=== PATIENT | female | born 1970 | race Caucasian/White ===

== ENCOUNTER 2016-09-18 18:18 | Emergency (ER) | payer OTHER ==
[~2016-09-18] VITALS: Ht 157.5 cm; Wt 72.0 kg
[~2016-09-18 18:18] MED LIST: CLON-379 PO; HYD25 PO; LORA-441 PO
[2016-09-18 18:59] VITALS: Ht 157.5 cm; Wt 72.0 kg
[2016-09-18] MEDS ORDERED: ACETAMINOPHEN 500 MG TAB PO STA (21:13)
--- NOTE | 2016-09-18 22:02 | RADRPT ---
PROCEDURE: XR Chest. CLINICAL INDICATION: Chest pain TECHNIQUE: A single portable view of the chest was obtained. COMPARISON: None FINDINGS: The cardiomediastinal silhouette is within normal limits. The lungs and pleural spaces are clear. The soft tissues and osseous structures are unremarkable. IMPRESSION: No acute cardiopulmonary disease. RPTAT: HPNM Physician Mary Date Time Electronically viewed and signed by Galdino Marin Physician on 09/18/2016 22:02 /
[2016-09-18] MEDS ORDERED: PROM25TA14 PO (22:13)
[2016-09-18] MEDS ORDERED: ACET325T33 PO (22:13)
[2016-09-18] MEDS ORDERED: BENZ100C70 PO (22:13)
--- NOTE | 2016-09-18 22:23 | ERD ---
ER Documentation Chief Complaint Date/Time DATE: 09/18/16 TIME: 22:22 Chief Complaint Cough and congestion x4 days. afebrile HPI This is a 45-year-old female presenting with a history of hypertension to the emergency department complaining of cough, congestion for the past 6 days. Patient denies any chest pain or significant shortness of breath. Patient states that she feels like she has phlegm stuck in her throat. She denies any nasal congestion at this moment however she says it started off with a lot of congestion 6 days ago. Patient states that 6 days ago she had a headache that has resolved as well. ROS All systems reviewed and are negative except as per history of present illness. Medications Home Meds Active Scripts Benzonatate* (Tessalon Perle*) 100 Mg Capsule, 100 MG PO Q8H Y for COUGH, #20 CAP Prov:NARDA GREER PA-C 09/18/16 Acetaminophen* (Tylenol*) 325 Mg Tablet, 1 TAB PO Q6 Y for PAIN AND OR ELEVATED TEMP, #30 TAB Prov:NARDA GREER PA-C 09/18/16 Promethazine Hcl* (Phenergan*) 25 Mg Tablet, 25 MG PO Q6 Y for NAUSEA AND/OR VOMITING, #14 TAB Prov:NARDA GREER PA-C 09/18/16 Lorazepam* (Ativan*) 0.5 Mg Tablet, 0.5 MG PO Q8H Y for ANXIETY, #10 TAB Prov:CATHY MINAYA DO 05/13/16 Clonidine Hcl* (Clonidine Hcl*) 0.1 Mg Tab, 0.1 MG PO Q6 Y for SBP> 160, or DBP> 100, #10 TAB Prov:CATHY MINAYA DO 05/13/16 Hydrochlorothiazide* (Hydrochlorothiazide*) 25 Mg Tab, 25 MG PO DAILY, #30 TAB Prov:NERI ESTRADA DO 02/08/15 Allergies Allergies: Coded Allergies: No Known Allergy (Unverified , 02/08/15) PMhx/Soc Medical and Surgical Hx: pt denies Surgical Hx History of Surgery: No Anesthesia Reaction: No Hx Neurological Disorder: No Hx Respiratory Disorders: No Hx Cardiac Disorders: Yes (htn) Hx Psychiatric Problems: No Hx Miscellaneous Medical Probl: No Hx Alcohol Use: No Hx Substance Use: No Hx Tobacco Use: No Smoking Status: Never smoker Physical Exam Vitals Vital Signs Date Time Temp Pulse Resp B/P Pulse Ox O2 Delivery O2 Flow Rate FiO2 09/18/16 23:59 97.9 112 18 134/84 98 Room Air 09/18/16 18:59 98.5 121 22 135/88 96 Physical Exam GENERAL: no acute distress, non-toxic appearing, sitting up in bed HENT: normocephalic/atraumatic EYES: conjunctiva is normal NECK: no noticeable or palpable swelling, no carotid bruits, no JVD CARDIOVASCULAR: RRR, good S1S2, no murmurs or gallops heard PULM: clear to auscultation, no use of accessory muscles, no crackles or wheezes. ABDOMEN: normal bowel sounds, abdomen soft and nontender EXT: no edema, cyanosis or clubbing MUSCULOSKELETAL: 5/5 strength, normal range of motion, no swollen or erythematous joints. NEURO: alert and oriented SKIN: no rashes, skin warm and dry, no erythematous areas BREAST: breast exam was not relevant, therefore not preformed PSYCH: normal mood and mentation, denies suicidal or homicidal ideation and thoughts Result Diagram: 09/18/16 2321 09/18/16 2321 Results 24 hrs Laboratory Tests Test 09/18/16 23:21 Alanine Aminotransferase (ALT/SGPT) 55IU/L Albumin 4.0g/dl Albumin/Globulin Ratio 1.21 Alkaline Phosphatase 82IU/L Anion Gap 16 Aspartate Amino Transf (AST/SGOT) 22IU/L Basophils # 0.010^3/ul Basophils % 0.4% Blood Urea Nitrogen 12mg/dl Calcium Level 8.9mg/dl Carbon Dioxide Level 28mmol/L Chloride Level 95mmol/L Creatine Kinase 271IU/L Creatine Kinase Index 0.3 Creatinine 0.61mg/dl Creatinine Kinase MB (Mass) 0.77ng/ml D-Dimer 2162.15ng/ml D-Dimer Comment Direct Bilirubin 0.00mg/dl Eosinophils # 0.210^3/ul Eosinophils % 2.0% Globulin 3.30g/dl Glucose Level 101mg/dl Hematocrit 35.2% Hemoglobin 12.2g/dl Indirect Bilirubin 0.2mg/dl Lipase 167U/L Lymphocytes # 3.410^3/ul Lymphocytes % 35.2% Mean Corpuscular Hemoglobin 29.5pg Mean Corpuscular Hemoglobin Concent 34.7g/dl Mean Corpuscular Volume 85.0fl Mean Platelet Volume 8.9fl Monocytes # 0.610^3/ul Monocytes % 6.5% Neutrophils # 5.310^3/ul Neutrophils % 55.2% Nucleated Red Blood Cells # 0.010^3/ul Nucleated Red Blood Cells % 0.0/100WBC Platelet Count 64676^3/UL Potassium Level 3.2mmol/L Red Blood Count 4.1410^6/ul Red Cell Distribution Width 12.5% Sodium Level 136mmol/L Total Bilirubin 0.2mg/dl Total Protein 7.3g/dl Troponin I 0.012ng/ml White Blood Count 9.610^3/ul Current Medications Medications (Trade) Dose Ordered Sig/Jerry Route PRN Reason Start Time Stop Time Status Last Admin Dose Admin Acetaminophen 1000 mg 1,000 mg ONCE STAT PO 09/18/16 21:13 09/18/16 21:15 DC 09/18/16 21:36 Sodium Chloride 1,000 ml @ 1,000 mls/hr Q1H STAT IV 09/18/16 22:29 09/18/16 23:28 DC 09/18/16 22:29 Sodium Chloride (NS) 100 ml @ ud STK-MED ONCE .ROUTE 09/19/16 00:33 09/19/16 00:34 DC 09/19/16 00:51 Iohexol (Omnipaque 300mg/ ml) 150 ml STK-MED ONCE .ROUTE 09/19/16 00:33 09/19/16 00:34 DC 09/19/16 00:51 Procedures/MDM This is a 45-year-old female with a history of hypertension presenting to the emergency room complaining of cough and congestion for the past 6 days. This is likely due to a viral upper respiratory infection/bronchitis due to physical examination. A chest x-ray did not show any evidence of infiltrates, pneumothorax, pleural effusion or pneumonia. On examination patient was tachycardic at 121 I have rechecked her pulse and it became 138 on recheck throughout the examination.. I have consulted my supervising physician regarding this patient who advised for patient to do a CTA of the chest to rule out pulmonary embolism. IV access was established. CBC did not show any evidence of leukocytosis or anemia. CMP did not show any significant abnormalities. D-dimer was elevated. Troponin was negative. An EKG was done in the ED and no evidence of STEMI. CTA of the chest was done and radiologist stated: 1. No evidence for pulmonary embolus. 2. Asymmetric left lower lobe bronchiectasis with peribronchial thickening and mild interstitial changes suggestive of inflammation/bronchitis. No dense focal lobar consolidation. 3. Small hiatal hernia. 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 Discussed return to the emergency room for any worsening signs or symptoms. Patient understands and agrees with this plan Departure Diagnosis: Primary Impression: Viral URI Condition: Stable Patient Instructions: Uri, Viral, No Abx (Adult) Additional Instructions: FOLLOW UP WITH YOUR PRIMARY CARE PHYSICIAN TOMORROW.Return to this facility if you are not improving as expected. Return to this facility if you are not improving as expected. Take all medicines as directed. NARDA GREER PA-C Sep 18, 2016 22:23
[2016-09-18] MEDS ORDERED: SOD CHLORIDE 0.9% 1,000 ML IV STA (22:29)
[2016-09-18 23:57] LABS: ADD SCAN DIFF NO
[2016-09-19] LABS: BASOPHILS % 0.4 % (0.0-2.0); EOSINOPHILS # 0.2 10^3/ul (0.0-0.5); HEMATOCRIT 35.2 % (37.0-47.0); HEMOGLOBIN 12.2 g/dl (12.0-16.0); LYMPHOCYTES # 3.4 10^3/ul (0.8-2.9); LYMPHOCYTES % 35.2 % (15.0-51.0); MEAN CORPUSCULAR HEMOGLOBIN 29.5 pg (29.0-33.0); MEAN CORPUSCULAR HGB CONC 34.7 g/dl (32.0-37.0); MEAN PLATELET VOLUME 8.9 fl (7.4-10.4); MONOCYTE # 0.6 10^3/ul (0.3-0.9); MONOCYTES % 6.5 % (0.0-11.0); NEUTROPHIL # 5.3 10^3/ul (1.6-7.5); NEUTROPHILS % 55.2 % (39.0-77.0); PLATELET COUNT 402 10^3/UL (140-415); RED BLOOD COUNT 4.14 10^6/ul (4.20-5.40); RED CELL DISTRIBUTION WIDTH 12.5 % (11.5-14.5); WHITE BLOOD COUNT 9.6 10^3/ul (4.8-10.8)
[2016-09-19 00:09] LABS: CHLORIDE 95 mmol/L (97-110); POTASSIUM 3.2 mmol/L (3.5-5.1); SODIUM 136 mmol/L (135-144)
[2016-09-19 00:11] LABS: ALBUMIN/GLOBULIN RATIO 1.21; ALKALINE PHOSPHATASE 82 IU/L (42-121); ANION GAP 16 (8-16); ASPARTATE AMINO TRANSFERASE 22 IU/L (15-46); BILIRUBIN,INDIRECT 0.2 mg/dl (0-1.1); BILIRUBIN,TOTAL 0.2 mg/dl (0.2-1.3); CARBON DIOXIDE 28 mmol/L (21-31); CREATININE 0.61 mg/dl (0.44-1.00); TOTAL PROTEIN 7.3 g/dl (6.1-8.1)
[2016-09-19 00:12] LABS: ALANINE AMINOTRANSFERASE 55 IU/L (13-69); BLOOD UREA NITROGEN 12 mg/dl (7-20); CALCIUM 8.9 mg/dl (8.4-10.2); CREATINE KINASE 271 IU/L (23-200); D-DIMER 2162.15 ng/ml (<460); GLUCOSE 101 mg/dl (70-220)
[2016-09-19 00:21] LABS: CK-MB 0.77 ng/ml (0.0-2.4)
[2016-09-19 00:24] LABS: TROPONIN-I 0.012 ng/ml (0.00-0.12)
[2016-09-19 00:30] LABS: TROPONIN-I < 0.012 ng/ml (0.00-0.12)
[2016-09-19] MEDS ORDERED: IOHEXOL 300MG/ML 150 ML BTL ONE (00:33)
[2016-09-19] MEDS ORDERED: SOD CHLORIDE 0.9% 100 ML ONE (00:33)
--- NOTE | 2016-09-19 01:28 | RADRPT ---
PROCEDURE: CT Chest with IV contrast. CLINICAL INDICATION: Cough TECHNIQUE: CT scan of the chest was performed on a multidetector scanner. The patient was scanned following the uncomplicated intravenous administration of 100 cc of Omnipaque-300 contrast. 3D, co julio cesar and sagittal reformatted images were obtained from the axial source images. Images were review ed on a high-resolution PACS workstation. The total exam CTDlvol = 22 mGy and DLP = 322 mGy-cm. One of the following 3 dose reduction techniques were used: Automated exposure control; adjustment of th e mA and/or kV according to patient size; or use of iterative reconstruction technique. COMPARISON: Chest x-ray 09/18/2016 FINDINGS: No filling defects are identified within the pulmonary arteries to suggest pulmonary artery thrombos is. Thoracic aorta is normal caliber without aneurysm or dissection. There is no mediastinal or hi lar lymphadenopathy or mass. Heart is normal size. No pericardial fluid or thickening. A small hia disha hernia is present. There is mild dependent atelectasis. There is asymmetric left lower lobe peribronchial thickening w ith mild interstitial prominence consistent with a bronchitis. There is no focal lobar infiltrate.. There is no pleural effusion. There is no pneumothorax. There are no fractures. Chest wall is unremarkable. Imaging obtained through the upper abdomen reveals no acute abnormality. IMPRESSION: 1. No evidence for pulmonary embolus. 2. Asymmetric left lower lobe bronchiectasis with peribronchial thickening and mild interstitial ch anges suggestive of inflammation/bronchitis. No dense focal lobar consolidation. 3. Small hiatal hernia. RPTAT: [facility] .Raudel Dinero MD, Date Time Electronically viewed and signed by .Raudel Dinero MD, MD on 09/19/2016 01:28 .K/
[2016-09-19 02:07] VITALS: BP 127/81; PULSE 108; RESP 18; TEMP 98
== END 2016-09-19 02:09 | disposition home or self-care (01) ==
LOC: FTE 18:18
DX: J06.9 Acute upper respiratory infection, unspecified (principal); I10 Essential (primary) hypertension; R07.9 Chest pain, unspecified
CPT/HCPCS: 71010; 71275; 80053; 82550; 82553; 83690; 84484; 85025; 85378; 93005; J7030; Q9967; Z7502; Z7610

== ENCOUNTER 2016-09-21 15:10 | Emergency (ER) | payer OTHER ==
[~2016-09-21] VITALS: Wt 71.8 kg
[~2016-09-21 15:10] MED LIST changes: +ACET325T33 PO; +BENZ100C70 PO; +PROM25TA14 PO
[2016-09-21] MEDS ORDERED: HYDR-906 PO (15:44)
[2016-09-21] MEDS ORDERED: AZIT500T5 PO (15:44)
[2016-09-21] MEDS ORDERED: NAPR-688 PO (15:44)
--- NOTE | 2016-09-21 15:55 | ERD ---
ER Documentation Chief Complaint Date/Time DATE: 09/21/16 TIME: 15:48 Chief Complaint SORE THROAT FOR THE PAST WEEK. NO DISTRESS NOTED. CONGESTION HPI This 45-year-old human female presents to the ER for a cough going on for 1 week. She case his throat soreness and mucus in her throat when she is coughing but does not have a sore throat. She saw her primary care doctor who gave her Tessalon Perles which have not helped for the cough. She has not had fevers with some chills. Denies any shortness of breath or chest pain. ROS All systems reviewed and are negative except as per history of present illness. Medications Home Meds Active Scripts Naproxen* (Naproxen*) 500 Mg Tablet, 500 MG PO BID, #20 TAB Prov:NATALIENERIBOB IVY 09/21/16 Hydrocodone/Acetaminophen (Vernon 5-325 Tablet) 1 Each Tablet, 1 EACH PO Q6, #5 TAB Prov:NERI ESTRADA DO 09/21/16 Azithromycin* (Azithromycin*) 500 Mg Tablet, 500 MG PO DAILY, #3 TAB Prov:NATALIENERI DO 09/21/16 Benzonatate* (Tessalon Perle*) 100 Mg Capsule, 100 MG PO Q8H Y for COUGH, #20 CAP Prov:NARDA GREER PA-C 09/18/16 Acetaminophen* (Tylenol*) 325 Mg Tablet, 1 TAB PO Q6 Y for PAIN AND OR ELEVATED TEMP, #30 TAB Prov:NARDA GREER PA-C 09/18/16 Promethazine Hcl* (Phenergan*) 25 Mg Tablet, 25 MG PO Q6 Y for NAUSEA AND/OR VOMITING, #14 TAB Prov:NARDA GREER PA-C 09/18/16 Lorazepam* (Ativan*) 0.5 Mg Tablet, 0.5 MG PO Q8H Y for ANXIETY, #10 TAB Prov:CATHY MINAYA DO 05/13/16 Clonidine Hcl* (Clonidine Hcl*) 0.1 Mg Tab, 0.1 MG PO Q6 Y for SBP> 160, or DBP> 100, #10 TAB Prov:CATHY MINAYA DO 05/13/16 Hydrochlorothiazide* (Hydrochlorothiazide*) 25 Mg Tab, 25 MG PO DAILY, #30 TAB Prov:NERI ESTRADA 02/08/15 Allergies Allergies: Coded Allergies: No Known Allergy (Unverified , 02/08/15) PMhx/Soc History of Surgery: No Anesthesia Reaction: No Hx Neurological Disorder: No Hx Respiratory Disorders: No Hx Cardiac Disorders: Yes (htn) Hx Psychiatric Problems: No Hx Miscellaneous Medical Probl: No Hx Alcohol Use: No Hx Substance Use: No Hx Tobacco Use: No Smoking Status: Never smoker Physical Exam Vitals Vital Signs Date Time Temp Pulse Resp B/P Pulse Ox O2 Delivery O2 Flow Rate FiO2 09/21/16 15:12 97.0 102 21 145/81 98 Physical Exam Const: [] No distress ENT: Normal External Ears, Nose and Mouth. Oropharynx within normal limits Neck: Full range of motion..~Left anterior cervical shotty adenopathy. Resp: Clear to auscultation bilaterally Cardio: Regular rate and rhythm, no murmurs Skin: No petechiae or rashes Neur: Awake and alert and oriented 3, no focal deficits Procedures/MDM 45-year-old female with ongoing cough that is not improving. Likely bronchitis at this point. I'm going to discharge her with naproxen as well as a few Vernon pills dispensed the cough at night when she tries to sleep. She's been having trouble sleeping. Giving her primary care follow-up in 2-3 days return precautions to the ER. Departure Diagnosis: Primary Impression: Bronchitis, acute Condition: Stable Patient Instructions: Bronchitis, Antiobiotic Treatment (Adult) Additional Instructions: Llame al doctor MAANA y iva jim KOBY PARA DENTRO DE 2-3 AVINA.Dgale a la secretaria que nosotros le instruimos hacer esta koby.Avise o llame si espinosa condicin se empeora antes de la koby. Regresa aqui si peor o no mejor. NERI ESTRADA DO Sep 21, 2016 15:55
== END 2016-09-21 16:01 | disposition home or self-care (01) ==
LOC: FTE 15:10
DX: J20.9 Acute bronchitis, unspecified (principal); I10 Essential (primary) hypertension
CPT/HCPCS: 99284